=== PATIENT | male | born 1995 | race Caucasian/White ===

== ENCOUNTER 2018-09-21 07:34 | Emergency (ER) | payer OTHER ==
[~2018-09-21] VITALS: Ht 177.8 cm; Wt 84.0 kg
[2018-09-21 07:35] VITALS: BP 133/72
[2018-09-21] MEDS ORDERED: LIDOCAINE 1%-EPI 1:100K, 30ML ONE (08:17)
[2018-09-21] MEDS ORDERED: LIDOCAINE 1%-EPI 1:100K, 20ML ONE (08:17)
[2018-09-21] MEDS ORDERED: LIDOCAINE 1%-EPI 1:100K, 20ML SQ ONE (08:30)
== END 2018-09-21 09:19 | disposition home or self-care (01) ==
LOC: ED 09:18
DX: K64.5 Perianal venous thrombosis (principal)
CPT/HCPCS: 46083; 99284